=== PATIENT | male | born 1990 | race Caucasian/White ===

== ENCOUNTER 2016-10-31 16:27 | Inpatient (IN) | payer SELFPAY ==
[~2016-10-31] VITALS: Ht 170.2 cm; Wt 63.4 kg
[2016-10-31] VITALS (15 sets, daily range): BP systolic 110–122; BP diastolic 63–76; PULSE 61–90; RESP 10–20; TEMP 96.4–97.1; O2SAT 98–100; Ht 170.2 cm; Wt 63.4 kg
--- NOTE | 2016-10-31 16:44 | NUR ---
CT PATIENT TO CT PER CART, STABLE. ACCOMPANIED BY [facility] RN. MONITORS IN PLACE.
[2016-10-31] MEDS ORDERED: NORMAL SALINE 1,000 ML IV ONE (16:45)
[2016-10-31 16:55] LABS: BASOPHILS % (AUTO) 0.3 % (0-2); EOSINOPHILS # (AUTO) 0.2 T/MM3 (0-0.5); EOSINOPHILS % (AUTO) 3.1 % (0-4); HCT - HEMATOCRIT 37.3 % (41-53); HGB - HEMOGLOBIN 13.3 GM/DL (13.5-17.5); IMMATURE GRANULOCYTE # (AUTO) 0.01 T/MM3 (0.00-0.03); IMMATURE GRANULOCYTE % (AUTO) 0.1 % (0.0-0.5); LYMPHOCYTES # (AUTO) 1.7 T/MM3 (1-4.8); LYMPHOCYTES % (AUTO) 24.1 % (23-45); MEAN CORPUSCULAR HGB 33.5 UUG (26-34); MEAN CORPUSCULAR HGB CONC(MCHC 35.7 GM/DL (31-37); MEAN PLATELET VOLUME 9.6 UM3 (9.4-12.4); MONOCYTES # (AUTO) 0.4 T/MM3 (0-0.8); MONOCYTES % (AUTO) 5.7 % (0-9.0); NEUTROPHILS #(AUTO)-ABSOLUTE 4.7 T/MM3 (1.8-7.7); NEUTROPHILS % (AUTO) 66.7 % (33-66); RED BLOOD COUNT 3.97 M/MM3 (4.50-5.90)
[2016-10-31 17:02] LABS: INR 1.06 (0.76-1.04); PROTHROMBIN TIME 11.5 SEC (9.31-12.49); PTT 26.1 SEC (24-36)
[2016-10-31 17:04] LABS: ALBUMIN 4.4 G/DL (3.5-5.0); ALBUMIN/GLOBULIN RATIO 1.6 RATIO (1.1-2.2); ALKALINE PHOSPHATASE 56 U/L (38-126); ALT (SGPT) 30 U/L (21-72); ANION GAP 15 MEQ/L (5-15); AST (SGOT) 20 U/L (17-59); BUN/CREATININE RATIO 18 RATIO (6-26); CALCIUM 9.6 MG/DL (8.4-10.2); CHLORIDE 106 MEQ/L (98-107); CO2 - CARBON DIOXIDE 23 MEQ/L (22-30); CREATININE 1.1 MG/DL (0.8-1.5); GLOMERULAR FILTRATION RATE 81; GLUCOSE 157 MG/DL (75-110); POTASSIUM 3.7 MEQ/L (3.6-5); SODIUM 144 MEQ/L (134-144); TOTAL PROTEIN 7.2 G/DL (6.3-8.2)
[2016-10-31] MEDS ORDERED: NO ROUTINE MEDS (17:17)
--- NOTE | 2016-10-31 17:24 | NUR ---
EYE IRRIGATION LISA LENS PLACED IN LEFT EYE FOR IRRIGATION.
[2016-10-31] MEDS ORDERED: NORMAL SALINE IV ONE (17:30)
--- NOTE | 2016-10-31 17:54 | NUR ---
EYE IRRIGATION LEFT EYE LISA LENS IRRIGATION COMPLETE.
[2016-10-31] MEDS ORDERED: EYE WASH SOLUTION 30 ML BOTTLE OP ONE (18:00)
[2016-10-31] MEDS ORDERED: TETRACAINE 0.5% EYE DROPS 4ml BOTTLE OP ONE (18:00)
[2016-10-31] MEDS ORDERED: FLUORESCEIN SODIUM 1 MG/STRIP OP ONE (18:00)
--- NOTE | 2016-10-31 18:00 | NUR ---
PROVIDER DR FLORES TO BEDSIDE FOR EYE EXAM AFTER PATIENT REPORTS HE FEELS THAT THERE IS GLASS EMBEDDED IN HIS EYE. AFTER LISA LENS
--- NOTE | 2016-10-31 18:15 | NUR ---
EYE IRRIGATION 200 ML NS IRRIGATED IN RIGHT EYE, LISA LENS CAME OUT. PATIENT REFUSES TO HAVE LISA LENS REPLACED.
[2016-10-31] MEDS ORDERED: CEFAZOLIN 1 G in NORMAL SALINE 100 ML IV ONE (18:30)
[2016-10-31] MEDS ORDERED: TETANUS,DIPHTH,a PERTUS (Tdap) 0.5 ML VIAL IM ONE (18:30)
--- NOTE | 2016-10-31 18:45 | NUR ---
UPDATE PATIENT REPORTS HE IS HAVING DIFFICULTY SEEING FROM HIS LEFT EYE.
--- NOTE | 2016-10-31 18:50 | NUR ---
UPDATE TETRACAINE DROPS PLACED IN LEFT EYE BY DR MCNALLY. PATIENT REPORTS AFTER THE DROPS HE IS ABLE TO SEE OK AGAIN.
--- NOTE | 2016-10-31 18:50 | NUR ---
PROVIDER DR MCNALLY TO BEDSIDE
--- NOTE | 2016-10-31 19:09 | NUR ---
PROVIDER DR WILEY AT BEDSIDE
--- NOTE | 2016-10-31 19:26 | NUR ---
PROVIDER Harpreet WILCOX ATTENDING RADIOLOGIST AT BEDSIDE TO SUTURE LIP LACERATION.
[2016-10-31] MEDS ORDERED: LIDOCAINE 1% (10mg/ml) 30ml SDV SQ ONE (19:30)
--- NOTE | 2016-10-31 19:42 | NUR ---
ADMIT PATIENT TAKEN TO SURGERY
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
--- NOTE | 2016-10-31 19:49 | NUR ---
REPORT REPORT GIVEN TO TY LOCKE ON SURGICAL UNIT. BELONGINGS TAKEN TO UNIT.
[2016-10-31] MEDS ORDERED: HYDROMORPHONE 2mg/ml INJECTION ONE (20:05)
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
[2016-10-31] MEDS ORDERED: DiphenhydrAMINE 50 MG/ML INJECTION IV PRN (21:00)
[2016-10-31] MEDS ORDERED: CEFAZOLIN 1 G in NORMAL SALINE 100 ML IV SCH (21:00)
[2016-10-31] MEDS ORDERED: MILK OF MAGNESIA 30 ML SUSP PO PRN (21:00)
[2016-10-31] MEDS ORDERED: MORPHINE SULFATE 10 MG SYRINGE IV PRN (21:00)
[2016-10-31] MEDS: SENNA + DOCUSATE TAB PO SCH (21:00)
[2016-10-31] MEDS ORDERED: ONDANSETRON 4mg/2ml INJECTION IV PRN (21:00)
--- NOTE | 2016-10-31 21:04 | PDPROCED ---
Immediate Operative Note DATE: 10/31/16 TIME: 21:03 Preop Diagnosis: open clavicle fracture Postop Diagnosis: open clavicle fracture Surgical Procedures: Other (Irrigation and Debridement open clavicle fracture) Surgeon: Von Look Out Tower Fire Watcher: MEME Mckinney Anesthesia: General Complications: none Estimated Blood Loss see anesthesia record REZA YUN Oct 31, 2016 21:04
[2016-10-31 21:40] LABS: BLOOD, URINE NEGATIVE (NEGATIVE); COLOR,URINE YELLOW (YELLOW); LEUKOCYTE ESTERASE ,URINE NEGATIVE (NEGATIVE); NITRITE,URINE NEGATIVE (NEGATIVE); UROBILINOGEN,URINE 0.2 EU/DL (NORMAL)
--- NOTE | 2016-10-31 21:48 | ANESPO ---
Post-Op Note Date 10/31/16 Time: 21:48 Status Pt Participated in Evaluation: Pt participated in person Vital Signs Date Time Temp Pulse Resp B/P Pulse Ox O2 Delivery O2 Flow Rate FiO2 10/31/16 21:41 97.1 80 16 114/65 98 Room Air Respiratory Function: Airway patent Cardiovascular Function: Regular pulse Pain Level Intensity: 0 Unable to Assess Pain Due To: Pt Sleeping (arousable) Hydration: IV infusing Complications during Recovery None apparent Follow-Up Instructions Instructions Per Surgeon REBEL BLEDSOE CRNA Oct 31, 2016 21:48
[2016-10-31 21:49] LABS: AMPHETAMINE SCREEN,URINE POSITIVE; BARBITURATE SCREEN,URINE NEGATIVE; BENZODIAZEPINES SCREEN,URINE NEGATIVE; CANNABINOID SCREEN,URINE POSITIVE; COCAINE SCREEN,URINE NEGATIVE; METHADONE SCREEN, URINE NEGATIVE; METHAMPHETAMINE SCREEN, URINE NEGATIVE; OPIATE SCREEN,URINE NEGATIVE; PHENCYCLIDINE SCREEN,URINE NEGATIVE; TRICYCLIC ANTIDEPRESSANT,URINE NEGATIVE
--- NOTE | 2016-10-31 21:50 | NUR ---
ADMISSION ASSESSMENT LIMITED ADMISSION ASSESSMENT DONE AT THIS TIME DUE TO PATIENTS LEVEL OF SEDATION/DROWSINESS. WILL CONTINUE TO MONITOR AND ADD TO ADMISSION INFORMATION WHEN POSSIBLE. PT PLACED ON TELEMETRY AND CONTINUE PULSE OXIMETRY DUE TO SEDATION/DROWSINESS AND HX OF DRUG USE. SLING AND ICE PACKS IN PLACE AT THIS TIME. HOB ELEVATED SLIGHTLY,BED ALARM IS ON AND FREQUENT ROUNDING IS IN PLACE TO ASSURE PATIENT SAFETY. WILL CONTINUE TO MONITOR.
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
[2016-10-31] MEDS: NORMAL SALINE 1,000 ML IV SCH (21:54)
[2016-11-01] VITALS (28 sets, daily range): BP systolic 97–147; BP diastolic 52–81; PULSE 50–90; RESP 10–18; TEMP 97.1–99.2; O2SAT 97–100
[2016-11-01] MEDS: CEFAZOLIN 1 G in NORMAL SALINE 100 ML IV SCH ×3 (02:51→19:23)
[2016-11-01 05:02] LABS: BASOPHILS % (AUTO) 0.1 % (0-2); EOSINOPHILS # (AUTO) 0.3 T/MM3 (0-0.5); EOSINOPHILS % (AUTO) 2.6 % (0-4); HCT - HEMATOCRIT 35.3 % (41-53); HGB - HEMOGLOBIN 12.3 GM/DL (13.5-17.5); IMMATURE GRANULOCYTE # (AUTO) 0.02 T/MM3 (0.00-0.03); IMMATURE GRANULOCYTE % (AUTO) 0.2 % (0.0-0.5); LYMPHOCYTES % (AUTO) 18.7 % (23-45); MEAN CORPUSCULAR HGB 33.5 UUG (26-34); MEAN CORPUSCULAR HGB CONC(MCHC 34.8 GM/DL (31-37); MEAN CORPUSCULAR VOLUME 96.2 UM3 (80-100); MEAN PLATELET VOLUME 9.6 UM3 (9.4-12.4); MONOCYTES # (AUTO) 0.9 T/MM3 (0-0.8); MONOCYTES % (AUTO) 8.4 % (0-9.0); NEUTROPHILS #(AUTO)-ABSOLUTE 7.6 T/MM3 (1.8-7.7); RED BLOOD COUNT 3.67 M/MM3 (4.50-5.90); WBC - WHITE BLOOD COUNT 10.8 T/MM3 (4.5-11.0)
[2016-11-01 05:29] LABS: ANION GAP 11 MEQ/L (5-15); BUN/CREATININE RATIO 13 RATIO (6-26); CALCIUM 8.7 MG/DL (8.4-10.2); CHLORIDE 111 MEQ/L (98-107); CO2 - CARBON DIOXIDE 21 MEQ/L (22-30); CREATININE 0.8 MG/DL (0.8-1.5); GLOMERULAR FILTRATION RATE 117; GLUCOSE 88 MG/DL (75-110); POTASSIUM 3.5 MEQ/L (3.6-5); SODIUM 143 MEQ/L (134-144)
--- NOTE | 2016-11-01 06:36 | NUR ---
OUTPUT AND PAIN PT RATES PAIN A 2-3 OUT OF 10, DENIES NEED FOR PAIN MEDICATION. NECK SKEWER PAIGE TRANSLATES BASIC NEEDS AT BEDSIDE WITH THIS RN. PT ENCOURAGED TO USE THE RESTROOM. HELPED TO THE BATHROOM VIA STANDBY ASSIST. BED CHANGED DUE TO SWEATING DURING THE NIGHT. WILL CONTINUE TO MONITOR.
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
[2016-11-01] MEDS: NORMAL SALINE 1,000 ML IV SCH ×3 (10:04→21:37)
[2016-11-01] MEDS: SENNA + DOCUSATE TAB PO SCH ×2 (10:04→21:35)
--- NOTE | 2016-11-01 10:10 | NUR ---
CM CM IN TO VISIT PATIENT, NURSE IS USING THE VIDEO PANTOGRAPH SETTER (PORTUGUESE SPEAKING ONLY) SO WAS ABLE TO ASK THROUGH SYSTEM THAT HE LIVES IN [place] AND HAS HELP AT HOME IF NEEDED. CM CONTACT INFORMATION LEFT. Addendum: 11/01/16 at 1011 by CAIT ANG RN Amended: Links added.
[2016-11-01] MEDS ORDERED: BUPIVACAINE 0.25% (2.5mg/ml) INJ 30ml SDV ONE (10:20)
--- NOTE | 2016-11-01 10:46 | NUR ---
OFF UNIT PATIENT IS OFF UNIT AT THIS TIME. PATIENT LEFT VIA OWN BED AND NURSING STAFF.
[2016-11-01] MEDS ORDERED: ROCURONIUM 50mg/5ml INJECTION IV ONE (11:21)
[2016-11-01] MEDS ORDERED: FENTANYL 250mcg/5ml INJECTION ONE (11:21)
[2016-11-01] MEDS ORDERED: PROPOFOL 200mg 20 ML IV ONE (11:21)
[2016-11-01] MEDS ORDERED: LACRI-LUBE EYE OINT 3.5 G TUBE ONE (11:41)
[2016-11-01] MEDS ORDERED: KETOROLAC 30mg/ml INJECTION ONE (12:41)
[2016-11-01] MEDS ORDERED: NEOSTIGMINE 10mg/10ml INJECTION ONE (12:53)
[2016-11-01] MEDS ORDERED: GLYCOPYRROLATE 0.4mg/2ml INJECTION ONE (12:53)
--- NOTE | 2016-11-01 13:11 | PDPROCED ---
Immediate Operative Note DATE: 11/01/16 TIME: 13:10 Preop Diagnosis: open clavicle fracture Postop Diagnosis: open clavicle fracture Surgical Procedures: Other (Irrigation and Debridement left clavicle with ORIF) Surgeon: Von Depositing Machine Operator: MEME Mckinney Anesthesia: General Complications: None Estimated Blood Loss see anesthesia REZA YUN Nov 01, 2016 13:11
--- NOTE | 2016-11-01 13:26 | ANESPO ---
Post-Op Note Date 11/01/16 Time: 13:25 Status Pt Participated in Evaluation: Pt participated in person Vital Signs Date Time Temp Pulse Resp B/P Pulse Ox O2 Delivery O2 Flow Rate FiO2 11/01/16 10:00 90 18 11/01/16 08:15 99.2 122/73 98 Room Air Respiratory Function: Airway patent Cardiovascular Function: Regular pulse Telemetry Pattern: SB Mental Status: Alert/oriented Pain Level Intensity: 0 Unable to Assess Pain Due To: Pt Sleeping (arousable) Hydration: IV infusing Complications during Recovery None apparent Follow-Up Instructions Instructions Per Surgeon HARRY DIAZ CRNA Nov 01, 2016 13:26
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
--- NOTE | 2016-11-01 14:12 | NUR ---
BACK TO UNIT PATIENT IS BACK TO UNIT AT THIS TIME. PATIENT DENIES CP, NAUSEA, SOA, AND PAIN. PATIENT IS ALERT AND ORIENTED X3.
--- NOTE | 2016-11-01 18:22 | NUR ---
SHIFT SUMMARY PATIENT IS ALERT AND ORIENTED X3. PATIENT VITALS ARE STABLE AND PATIENT IS ON ROOM AIR. PATIENT DENIES CP, NAUSEA, PAIN, AND SOA. PATIENT IS UP WITH STAND BY ASSIST, AND GB. PATIENT HAS NOT REQUIRED PRN PO OR IV PAIN MEDICATION. PATIENT DRESSING IS CLEAN DRY AND INTACT.
--- NOTE | 2016-11-01 20:56 | OPNOTEF ---
DATE OF OPERATION 11/01/2016 PREOPERATIVE DIAGNOSIS Left open midshaft clavicle fracture. POSTOPERATIVE DIAGNOSIS Left open midshaft clavicle fracture. PROCEDURE Repeat irrigation and debridement left open clavicle fracture with open reduction internal fixation left midshaft clavicle fracture. SURGEON Ricco Longoria MD SCHOOL BUSINESS ADMINISTRATOR Alec Richardson PA-C ANESTHESIA General FLUIDS Please refer to Anesthesia chart. EBL Minimal. TOURNIQUET None used. COMPLICATIONS None. CONDITION Stable to recovery room. IMPLANTS Durant seven-hole clavicular plate with six cortical screws. DESCRIPTION OF PROCEDURE The patient was identified in the preoperative holding area. The operative extremity was identified and appropriately marked. Risks, benefits, alternatives and potential complications were discussed and informed consent was obtained. This was performed using an special educator. The patient was taken to the operating theatre, placed supine on the operating table. Appropriate cardiorespiratory monitors were applied. General anesthesia was induced. The patient's head and neck were placed on elevated rings and turned to the right away from the operative field as the head of the bed was elevated to 45 degrees. The left upper extremity was then prepped and draped in the usual fashion extending over to the sternum overlying the entire length of the clavicle. Surgical time-out was performed, confirmed with myself, the tool marker and circulating nurse. Preoperative antibiotics had been given on scheduled dosing since admission. Fluoroscopy was brought in and the fracture was again visualized. It was a simple transverse fracture of the midshaft clavicle which remained displaced. Sutures from last evening's previous I&D were removed from the skin. Skin edges were inspected and found to still be viable. There was no evidence of devitalized tissue. Careful searching of the wound again showed no additional paint fragments or glass. The bone ends were delivered after grasping them with forceps. Prior to doing so, the lateral extent of the incision was extended an additional 2 cm for access to the clavicle for fixation. The wound and bone ends were then again irrigated with three liters of sterile saline solution. The bone tenacula were then used to deliver the bone ends and the ends were again curetted. Minimal periosteal stripping was performed. The fracture ends were then reduced. Fluoroscopy confirmed the reduction. It was a transverse fracture so interfragmentary fixation was not viable, however, we were able to hold this in fairly anatomic position. Therefore, a seven-hole plate was placed over the clavicle in its superior aspect and aligned. It was held provisionally with bone reduction clamps. Two screws were placed in the medial fragment using standard AO drilling technique. This secured the plate to the medial fragment. We then again assured alignment of the distal fragment and keyed in quite nicely under direct visualization. A screw was then placed in the compression hole on the lateral side of the fracture line through the plate using AO technique and this provided good compression across the fracture line. X-rays were again obtained showing an anatomic reduction and good position of the plate and screws. The remaining screw on the medial side was then drilled and filled with cortical screw. The remaining two screw holes on the plate on the lateral side were then drilled and filled as well. Final x-rays were obtained showing good position of the plate and anatomic alignment of the fracture. The wound was again irrigated with Asepto lavage and additional 500 mL. The clavipectoral fascia was then pulled over the plate and secured with interrupted and running 0 Vicryl sutures. Subcutaneous tissues were closed with interrupted inverted 2-0 Vicryl and skin closed with interrupted nylon sutures. The skin was anesthetized with Marcaine. Sterile dressings were applied followed by a sling. The patient was awakened from anesthesia and taken to the recovery room in stable and satisfactory condition. LILLIANA
[2016-11-01] MEDS: OXYCODONE/APAP 5mg/325mg TABLET PO PRN (21:35)
[2016-11-02] VITALS (10 sets, daily range): BP systolic 109–139; BP diastolic 65–82; PULSE 62–82; RESP 14–18; TEMP 97.1–99.7; O2SAT 96–99
[2016-11-02] MEDS: CEFAZOLIN 1 G in NORMAL SALINE 100 ML IV SCH ×3 (03:06→19:07)
[2016-11-02 05:13] LABS: BASOPHILS % (AUTO) 0.2 % (0-2); EOSINOPHILS # (AUTO) 0.3 T/MM3 (0-0.5); EOSINOPHILS % (AUTO) 3.1 % (0-4); HCT - HEMATOCRIT 36.8 % (41-53); HGB - HEMOGLOBIN 12.7 GM/DL (13.5-17.5); IMMATURE GRANULOCYTE # (AUTO) 0.02 T/MM3 (0.00-0.03); IMMATURE GRANULOCYTE % (AUTO) 0.2 % (0.0-0.5); LYMPHOCYTES # (AUTO) 2.2 T/MM3 (1-4.8); MEAN CORPUSCULAR HGB 33.2 UUG (26-34); MEAN CORPUSCULAR HGB CONC(MCHC 34.5 GM/DL (31-37); MEAN CORPUSCULAR VOLUME 96.3 UM3 (80-100); MEAN PLATELET VOLUME 10.3 UM3 (9.4-12.4); MONOCYTES % (AUTO) 9.2 % (0-9.0); NEUTROPHILS #(AUTO)-ABSOLUTE 6.8 T/MM3 (1.8-7.7); NEUTROPHILS % (AUTO) 66.3 % (33-66); RED BLOOD COUNT 3.82 M/MM3 (4.50-5.90); WBC - WHITE BLOOD COUNT 10.3 T/MM3 (4.5-11.0)
[2016-11-02 05:21] LABS: ANION GAP 10 MEQ/L (5-15); BUN/CREATININE RATIO 8 RATIO (6-26); CALCIUM 8.8 MG/DL (8.4-10.2); CHLORIDE 109 MEQ/L (98-107); CO2 - CARBON DIOXIDE 25 MEQ/L (22-30); CREATININE 0.8 MG/DL (0.8-1.5); GLOMERULAR FILTRATION RATE 117; GLUCOSE 108 MG/DL (75-110); POTASSIUM 3.5 MEQ/L (3.6-5); SODIUM 144 MEQ/L (134-144)
[2016-11-02] MEDS: OXYCODONE/APAP 5mg/325mg TABLET PO PRN (06:28)
--- NOTE | 2016-11-02 07:01 | NUR ---
PT did well overnight. VSS, PT in SR HR will drop to upper 50's while sleeping but remains a sinus rhythm. O2 sats were above 90% throughout night. RN was told in report there was a concern about withdrawal. RN monitored PT throughout shift for s/s of withdrawal and did not see anything to report. LCATB, bowels active. RN and patient communicated well overnight with comoran, what could not be communicated was communicated through comoran lila. PT took pain medication at 2135 2 pills and this morning 1 pill at 0630. RN explained pain may increase and if pain gets worse to let the RN know so we can keep pain under control RN placed ice bags per orders. PT denies any numbness or tingling on neurovascular checks, pulses are normal in radial and pedal pulses. PT has equal chief of field operations. RN moved patient's bedside table to the his good side. PT phone was , RN gave patient her phone director of health education to keep and use. PT instructed not to get out of bed. PT a/ox3. Report given and care surrendered to oncoming RN.
[2016-11-02] MEDS: SENNA + DOCUSATE TAB PO SCH ×2 (08:06→21:00)
[2016-11-02] MEDS ORDERED: OXYC1TAB8 PO (08:35)
[2016-11-02] MEDS ORDERED: CEPH-583 PO (08:35)
--- NOTE | 2016-11-02 08:39 | NUR ---
CM CM IN TO VISIT WITH PT. STATUS VICE PRESIDENT QUALITY DEVICE IS USED. PT DENIES DC NEEDS. HE PLANS TO RETURN HOME TO [facility] UPON DC. HE IS GIVEN UPDATED CM CONTACT INFORMATION.
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
[2016-11-02] MEDS ORDERED: POLY17PO6 PO (09:29)
--- NOTE | 2016-11-02 11:00 | NUR ---
DISCHARGE TEACHING REVIEWED DISCHARGE TEACHING WITH PT USING [employer]US FOR TRANSLATION. REVIEWED DISCHARGE ACTIVITY AND DISCHARGE MEDICATIONS AND PT'S QUESTIONS ANSWERED AND PT VERBALIZED UNDERSTANDING. REVIEWED FOLLOWUP APPT WITH PT AND PT VERBALIZED UNDERSTANDING. WILL CONTINUE TO MONITOR.
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
--- NOTE | 2016-11-02 19:35 | NUR ---
PT states he has a ride and they will be here by 2199. Assessment wnl, denies pain.
--- NOTE | 2016-11-02 22:00 | NUR ---
multiple phone calls were made to pt ride with no answer. RN at bedside, PT using RN jose a to call, PT left multiple messages with individuals for a ride, no return calls. RN discussed with discharge planner. RN and discharge planner spoke with the warehouse trainer. Case management was paged, page skoog patching machine operator called back and said message left, RN never received a call back from case management. RN spoke with Dr. Longoria, it was discussed to get a cab, warehouse trainer states that the cabs do not run at night and case management will need to set up a cab ride home for patient in the morning.
--- NOTE | 2016-11-02 22:30 | NUR ---
RN used translation lila to translate to patient that RN spoke with Dr. Longoria and the bathhouse keeper. PT verbalizes that he will be out of pocket for expense and that a cab will get him in the morning to take him home if his ride does not show up.
[2016-11-02] MEDS: NORMAL SALINE 1,000 ML IV SCH (22:53)
[2016-11-03] MEDS: CEFAZOLIN 1 G in NORMAL SALINE 100 ML IV SCH ×2 (02:17→12:19)
[2016-11-03 04:00] VITALS: BP 130/68; PULSE 61; RESP 18; TEMP 97.7; O2SAT 98
[2016-11-03 07:17] VITALS: BP 115/72; PULSE 68; RESP 18; TEMP 97.4; O2SAT 100
--- NOTE | 2016-11-03 07:52 | NUR ---
PT dislodged his AC IV, RN placed one in the lower arm that was dislodged and placed an additional IV after the previous one came out. PT was rolling around in the bed and IV was dislodged. PT did well overnight no changes from assessment. Report given to oncoming RN, RN discussed that pt will need a ride home.
[2016-11-03] MEDS: SENNA + DOCUSATE TAB PO SCH (10:23)
[2016-11-03] MEDS: NORMAL SALINE 1,000 ML IV SCH (11:23)
--- NOTE | 2016-11-03 15:17 | NUR ---
SAMMIE CM IN TO VISIT WITH PT USING STRATUS DEVICE. HE HAD REPORTED TO CHUCKY TOUSSAINT THAT HE IS EXPECTING A FAMILY MEMBER TO PICK HIM UP. THEY HAVE NOT YET ARRIVED. STATUS DEVICE IS USED TO CALL DANETTE HOLLAND. SHE REPORTS THAT SHE IS ON HER WAY. SHE IS ALMOST TO THE HOSPITAL.
--- NOTE | 2016-11-03 15:30 | NUR ---
DISMISSAL PT DISMISSED TODAY. PT LEFT THE UNIT VIA AMBULATION AND LEFT THE HOSPITAL VIA THE FRONT ENTRANCE. PT DID NOT HAVE AN IV IN PLACE AT TIME OF DISCHARGE. FAMILY HERE TO PICK THE PATIENT UP. PACKET AND INSTRUCTIONS GIVE TO THE PATIENT UPON DISCHARGE. PT VERBALIZED THE ANTIBIOTIC IS MORE IMPORTANT THAN THE PAIN MEDICATION IN HIS CASE. PT INFORMED TO CALL STAFF IF HE HAS QUESTIONS.
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
== END 2016-11-03 15:30 | disposition home or self-care (01) | DRG 517 ==
LOC: ED 16:27 → SCU 19:09 → SRG 20:39 → UNDOFXSDCSVC 20:53 → SCU 20:53 → UNDOFXSDCACCOM 20:53 → SRG 20:53 → UNDOFXSDCRRACCOM 20:53
PROVIDERS: ADMIT Orthopaedic Surgery; ATTEND Orthopaedic Surgery
PROC: 0PS Upper Bones, Reposition (ICD-10-PCS; 2016-10-31)
PROC: 3E10X8Z Irrigation of Skin and Mucous Membranes using Irrigating Substance (ICD-10-PCS; principal; 2016-10-31 20:18)
PROC: 0PSB04Z Reposition Left Clavicle with Internal Fixation Device, Open Approach (ICD-10-PCS; 2016-11-01)
DX: S42.022B Displaced fracture of shaft of left clavicle, initial encounter for open fracture (principal); S05.02XA Injury of conjunctiva and corneal abrasion without foreign body, left eye, initial encounter; V49.9XXA Car occupant (driver) (passenger) injured in unspecified traffic accident, initial encounter; Y93.89 Activity, other specified; Y92.410 Unspecified street and highway as the place of occurrence of the external cause; Y99.8 Other external cause status; Z72.0 Tobacco use; F15.10 Other stimulant abuse, uncomplicated
CPT/HCPCS: 36415; 80048; 80053; 80306; 80307; 81003; 85025; 85610; 85730; 86850; 86900; 86901; 90471; 90715; 94664; 96360